=== PATIENT | male | born 1945 | race Caucasian/White ===

== ENCOUNTER 2022-06-06 16:06 | Inpatient (IN) | payer MEDICARE, OTHER ==
[~2022-06-06] VITALS: Ht 177.8 cm; Wt 69.4 kg
[~2022-06-06 16:06] MED LIST: HYDR-3974 PO; RIVA10TA PO; Sennosides PO
--- NOTE | 2022-06-06 16:15 | NUR ---
RECEIVED PT 76 YRS MALE CAME FROM HOME ACCOMPANY BY PIEDAD AND PT BROTHER C/O ALOC SPOOK NONE SENCE DISORINTED ON AND OFF
--- NOTE | 2022-06-06 17:00 | NUR ---
X-RAY DONE AT BED SIDE
--- NOTE | 2022-06-06 17:09 | NUR ---
SEEN BY DR. DRAPER
[2022-06-06] MEDS ORDERED: IV NS 0.9% 1,000 ML BAG IV ONE (17:30)
--- NOTE | 2022-06-06 17:30 | NUR ---
TO CT SCAN OF HEAD VIA POLY STABLE VS STABLE
--- NOTE | 2022-06-06 18:00 | NUR ---
FAMILY AT BED SIDE DOUGHTER (RYLEE ) AND SON(PAUL)
[2022-06-06 18:03] LABS: BASOPHILS % (AUTO) 0.7 % (0.0-2.0); HEMATOCRIT 42 % (39-51); HEMOGLOBIN 13.9 g/dL (13.5-17.5); LYMPHOCYTES # (AUTO) 1.9 K/uL (0.8-4.8); LYMPHOCYTES % (AUTO) 30.3 % (20.0-44.0); MEAN CORPUSCULAR HGB CONC 33 g/dl (31.0-36.0); MEAN CORPUSCULAR VOLUME 86 fL (80-96); MONOCYTES # (AUTO) 0.6 K/uL (0.1-1.30); MONOCYTES % (AUTO) 10.1 % (2.0-12.0); NEUTROPHILS # (AUTO) 3.5 K/uL (1.8-8.9); NEUTROPHILS % (AUTO) 56.9 % (43.0-81.0); PLATELET COUNT (AUTO) 250 K/uL (150-450); RED BLOOD CELL COUNT(AUTO) 4.94 MIL/uL (4.5-6.0); WHITE BLOOD COUNT (AUTO) 6.2 K/uL (4.3-11.0)
[2022-06-06 18:16] LABS: SERUM AMMONIA 14 umol/L (11-32)
[2022-06-06 18:30] LABS: ALANINE AMINOTRANSFERASE 9 U/L (12-78); ALKALINE PHOSPHATASE 63 U/L (46-116); ASPARTATE AMINOTRANSFERASE 11 U/L (15-37); BILIRUBIN,DIRECT 0.1 mg/dL (0.0-0.2); BILIRUBIN,TOTAL 0.3 mg/dL (0.2-1.0); CALCIUM, SERUM 8.2 mg/dL (8.5-10.1); CARBON DIOXIDE 27 mmol/L (21-32); CHLORIDE 109 mmol/L (98-107); CREATININE 0.8 mg/dL (0.6-1.3); GLUCOSE 95 mg/dL (74-106); POTASSIUM 3.8 mmol/L (3.5-5.1); SODIUM SERUM 140 mmol/L (136-145); TOTAL PROTEIN, SERUM 6.5 g/dL (6.4-8.2); UREA NITROGEN, BLOOD 17 mg/dL (7-18)
[2022-06-06 18:43] LABS: ALCOHOL, BLOOD < 3 mg/dL (0-0)
--- NOTE | 2022-06-06 19:00 | NUR ---
VITAL SIGNS UPDATED.
--- NOTE | 2022-06-06 19:25 | NUR ---
AWAITING DIPOSITION OF PATIENT BY .
--- NOTE | 2022-06-06 19:35 | NUR ---
COVID ANTIGEN SWAB COLLECTED AND SENT TO LAB
--- NOTE | 2022-06-06 19:43 | NUR ---
[facility] CALLED FOR UA WAS SEND BY ED TACH DID NOT RECVED
--- NOTE | 2022-06-06 19:53 | NUR ---
URINE COLLECTED AND SENT TO LAB
[2022-06-06 21:29] LABS: BILIRUBIN,URINE NEGATIVE (NEGATIVE); COLOR,URINE YELLOW (YELLOW); LEUKOCYTE ESTERASE ,URINE NEGATIVE (NEGATIVE); NITRITE, URINE NEGATIVE (NEGATIVE); PH,URINE 5.5 (5.0-8.0); PROTEIN,URINE NEGATIVE (NEGATIVE); UGLUCOSE NEGATIVE (NEGATIVE); UROBILINOGEN,URINE 0.2 EU/dL (0.2)
[2022-06-06] MEDS ORDERED: MAG HYDROX/AL HYDROX/SIMETH 30 ML UDC PO PRN (22:00)
[2022-06-06] MEDS ORDERED: ONDANSETRON HCL/PF 4 MG/2 ML VIAL IVP PRN (22:00)
[2022-06-06] MEDS ORDERED: ACETAMINOPHEN 325 MG TABLET PO PRN (22:00)
[2022-06-06] MEDS ORDERED: MAGNESIUM HYDROXIDE 30 ML UDC PO PRN (22:00)
[2022-06-06] MEDS ORDERED: HYDROCODONE/APAP 5/325MG TABLET PO PRN (22:00)
[2022-06-06] MEDS ORDERED: TEMAZEPAM 15 MG CAPSULE PO PRN (22:00)
[2022-06-06] MEDS ORDERED: Z GUARD REMEDY 4 OZ OINT TP PRN (22:00)
--- NOTE | 2022-06-07 00:15 | NUR ---
IV ACCESS DISLODGED. PER SARA SOUSA DNP PT DOES NOT NEED IV ACCESS.
--- NOTE | 2022-06-07 00:27 | NUR ---
REPORT GIVEN TO LEONOR Patrick RN FOR MAIRA
[2022-06-07] MEDS ORDERED: OLANZAPINE 10 MG VIAL IM ONE (00:30)
[2022-06-07 01:50] VITALS: BP 146/90
--- NOTE | 2022-06-07 01:51 | NUR ---
PT TRANSFERRED TO 310-1 VIA ACLS PROTOCOL. ALL BELONGINGS WITH PT. VSS. NOTIFIED RYLEE (DAUGHTER )[phone] REGARDING ADMISSION
[2022-06-07 02:00] VITALS: BP 146/90
--- NOTE | 2022-06-07 02:00 | NUR ---
SOCIAL SCIENCE MANAGER ADMITTING NOTE PATIENT WAS TRANSPORTED ON THE GURNEY FROM ER TO THE UNIT. HE IS ON RA, NO S/S OF SOB OR DISTRESS. TOLERATED WELL. ACCORDING TO AC COLLADO, FROM ER, PATIENT REMOVED HIS IV ACCESS; SO PATIENT DOES NOT HAVE THE IV ACCESS AND BIOMEDICAL ENGINEERING INTERNSHIP MERRY AWARE. UPON ARRIVAL, VITAL SIGNS WERE TAKEN THE FOLLOWING: BP IS 146/90, HR IS 92, O2 SAT IS 97% WITH RA; TEMPERATURE IS 98.5 F. RR IS 18. PATIENT IS ON EXTERNAL DERRICK FOLLOWER, THE HEART RHYTHM IS SR @90S. PATIENT IS CALM BUT VERY CONFUSED. HE ONLY KNOWS HIS NAME; BUT SOMETIMES, HE DOES NOT KNOW WHERE HE IS. ORIENTED THE PATIENT WITH SURROUNDINGS, INSTRUCTED PATIENT HOW TO USE THE CALL LIGHT. INSERTED A NEW IV AT HIS LEFT FA, #22G, RUNNING NS @ 75 ML/HOUR. SAFETY MEASURES ARE IN PLACE: BED IN LOWEST AND LOCKED POSITION; BED ALARM IS ON; CALL GAN AND TABLE ARE WITHIN REACH. SIDE RAILS UP X 3. WILL CONTINUE MONITORING THE PATIENT'S CONDITION AND PROVIDE THE CARE PATIENT NEEDS.
[2022-06-07] MEDS: IV NS 0.9% 1,000 ML IV PRN (02:46)
[2022-06-07 04:34] VITALS: BP 128/76
--- NOTE | 2022-06-07 05:50 | NUR ---
CHALK CUTTER NOTE PATIENT IS VERY CONFUSED; REMOVED THE TELE MONITOR AND THE LEADS SEVERAL TIMES DURING THE NIGHT. EDUCATED THE PATIENT AND REORIENTED HIM. PATIENT REMOVED THE IV ACCESS AGAIN. DRESSING APPLIED TO THE SITE.
[2022-06-07 06:41] LABS: BASOPHILS % (AUTO) 0.6 % (0.0-2.0); EOSINOPHILS % (AUTO) 0.9 % (0.0-6.0); HEMATOCRIT 47 % (39-51); HEMOGLOBIN 15.3 g/dL (13.5-17.5); LYMPHOCYTES % (AUTO) 22.8 % (20.0-44.0); MEAN CORPUSCULAR HGB CONC 32 g/dl (31.0-36.0); MEAN CORPUSCULAR VOLUME 86 fL (80-96); MONOCYTES # (AUTO) 0.7 K/uL (0.1-1.30); MONOCYTES % (AUTO) 7.6 % (2.0-12.0); NEUTROPHILS % (AUTO) 68.1 % (43.0-81.0); PLATELET COUNT (AUTO) 301 K/uL (150-450); RED BLOOD CELL COUNT(AUTO) 5.49 MIL/uL (4.5-6.0); WHITE BLOOD COUNT (AUTO) 8.7 K/uL (4.3-11.0)
--- NOTE | 2022-06-07 07:10 | NUR ---
HUMAN RESOURCE MANAGEMENT INSTRUCTOR NOTE PATIENT HAS BEEN WALKING AROUND, TAKING OUT OF THE LEADS OF THE TELE MONITOR, AND HE REMOVED HIS IV ACCESS. LULU SOUSA AND CHARGE NURSE DAVID NOTIFIED. TELE MONITOR IS ON STANDBY NOW BECAUSE PATIENT REFUSED TO BE PUT ON THE LEADS OF THE MONITOR. REORIENTED THE PATIENT MANY TIMES DURING SHIFT, ALSO BY RN ELEONORA WHO SPEAKS NICARAGUAN, PATIENT STILL CAN'T UNDERSTAND THE SITUATION. RECEIVED MD ORDER FOR ONE TIME DOSE OF ZYPREXA 5 MG IM.
[2022-06-07] MEDS: OLANZAPINE 10 MG VIAL IM ONE ×2 (07:18→08:27)
[2022-06-07 07:20] LABS: CALCIUM, SERUM 8.9 mg/dL (8.5-10.1); CARBON DIOXIDE 26 mmol/L (21-32); CHLORIDE 107 mmol/L (98-107); CREATININE 0.8 mg/dL (0.6-1.3); GLUCOSE 97 mg/dL (74-106); MAGNESIUM 2.3 mg/dL (1.8-2.4); PHOSPHORUS 3.4 mg/dL (2.5-4.9); POTASSIUM 3.7 mmol/L (3.5-5.1); SODIUM SERUM 143 mmol/L (136-145); UREA NITROGEN, BLOOD 13 mg/dL (7-18)
[2022-06-07] MEDS: PANTOPRAZOLE 40 MG TABLET.DR PO SCH (07:30)
--- NOTE | 2022-06-07 07:30 | NUR ---
ASSOCIATE PROPERTY MANAGER CLOSING NOTE PATIENT IS CONFUSED AND WONDERING AROUND IN THE HALLWAY. IS STILL ON RA, NO S/S OF SOB OR DISTRESS. CURRENTLY, PATIENT HAS NO IV ACCESS DUE TO THE REMOVING BY HIMSELF. HE REFUSED TO BE INSERTED ANOTHER IV ACCESS. HE REMOVED THE TELE MONITOR LEADS FROM HIM; REFUSED WEARING THEM. CHARGE NURSE, ROHAN HERNANDEZ. PATIENT ALSO REFUSED HAVING THE IM INJECTION OF THE ZYPREXA 5 MG. CHANGE SHIFT REPORT GIVEN TO THE DAY SHIFT NURSE. HE CHANGED INTO HIS OWN CLOTHES NOW AND WANT TO GO HOME. ENDORSED THE NEXT SHIFT NURSE TO FOLLOW UP WITH THE CARE OF THIS PATIENT.
--- NOTE | 2022-06-07 07:45 | NUR ---
PAIL BAILER NOTES: RECEIVED PT AWAKE, A/O X1. PT IS UP AND WALKING AROUND THE ROOM. PATIENT APPEARS CONFUSED, WILL REORIENT TO STAFF AND UNIT. ON RA, NO S/S OF SOB. PT HAS NO IV ACCESS, PER PM RN, PT REMOVED IT AND REFUSED REINSERTION AT THIS TIME. REFUSED TELE MONITOR WELL, PM COMMUNITY CENTER COORDINATOR AWARE. SAFETY MEASURES IN PLACE, RN CALLED DAUGHTER TO UPDATE ABOUT FATHER WANTING TO LEAVE BUT PT DOESN'T NOT KNOW WHERE HE LIVES, WILL STAY WITH PT AND KEEP HIM FROM LEAVING UNIT, OTHERWISE WILL CONT WITH PLAN OF CARE DURING SHIFT.
--- NOTE | 2022-06-07 07:51 | NUR ---
FUND CONTROLLER NOTE RECEIVED MD ORDER FOR ZYPREXA 5 MG IM. PATIENT REFUSED. MEDICATION WASTED. DAY SHIFT RN FOR THE PATIENT NOTIFIED.
[2022-06-07 08:08] LABS: THYROID STIMULATING HORMONE 1.342 uIU/mL (0.358-3.74)
[2022-06-07] MEDS ORDERED: TAMS-12 PO (08:11)
[2022-06-07 16:25] VITALS: BP 122/62
--- NOTE | 2022-06-07 18:52 | NUR ---
FINANCIAL MANAGER CLOSING NOTES: PT ASLEEP IN BED, EASILY ROUSED. A/OX1, ALERT TO NAME. FAMILY AT BEDSIDE. ON RA, SATURATING WELL, NO S/S OF SOB AND ACUTE DISTRESS NOTED. TELE MONITOR READS SB, HR- 56. IV ACCESS R FA # 22 RUNNING NS 75ML/HR. SAFETY MEASURES IN PLACE, CALL LIGHT AND TABLE WITHIN EASY REACH. KEPT PT CLEAN, DRY AND COMFORTABLE, WILL ENDORSE TO PM SHIFT.
--- NOTE | 2022-06-07 19:20 | NUR ---
TAR ROOFER OPENING NOTES: PT IS SITTING IN BED, AWAKE, A/O X1. HE IS ON RA, NO S/S OF SOB OR DISTRESS. HIS FAMILY MEMBERS ARE AT HIS BEDSIDE, WHICH CALMS HIM DOWN SIGNIFICANTLY. ACCORDING TO HIS FAMILY MEMBERS, PATIENT IS REALLY CONFUSED, AND ONLY KNOWS HIS NAME. IV ACCESS IS AT HIS RIGHT FA, #20G, SL. PATIENT IS ON EXTERNAL TELE MONITOR, HIS HEART RHYTHM IS SR AT 70s. SAFETY MEASURES IN PLACE: BED IN LOWEST AND LOCKED POSITION; SIDE RAILS UP X 2; BED ALARM IS ON; CALL GAN AND TABLE ARE IN REACH. FAMILY MEMBER IS AT HIS BEDSIDE. WILL CONTINUE MONITORING PATIENT'S CONDITION, AND PROVIDE THE CARE PATIENT NEEDS.
[2022-06-07 20:00] VITALS: BP 136/81
[2022-06-07] MEDS: QUETIAPINE FUMARATE 25 MG TABLET PO PRN (22:26)
--- NOTE | 2022-06-07 22:30 | NUR ---
MONUMENT CARVER NOTE PATIENT IS REQUESTING FOR SLEEPING PILLS; AND PATIENT'S FAMILY MEMBER STATED THAT THE PATIENT IS ANXIOUS, TOO. PRN MEDICATIONS GIVEN PER MD ORDER FOR INSOMNIA AND ANXIOUS.
--- NOTE | 2022-06-07 23:11 | NUR ---
MS SHEN NOTE PT IS REQUESTING FOR A NICOTINE PATCH. LULU SOUSA CONTACTED AND RECEIVED THE ORDER IMMEDIATELY. Addendum: 06/08/22 at 0100 by DAX CEDEÑO RN ERROR. WRONG PATIENT
[2022-06-07] MEDS ORDERED: NICOTINE PATCH (21MG) 21 MG PATCH.TD24 TD SCH (23:15)
[2022-06-08] MEDS: IV NS 0.9% 1,000 ML IV PRN ×2 (02:32→21:46)
--- NOTE | 2022-06-08 05:37 | NUR ---
IT SOFTWARE DEVELOPER NOTE PATIENT IS SLEEPING. PATIENT'S BROTHER TOLD THE ACADEMIC INTERVENTIONIST NOT TAKING THE VITAL SIGNS FOR HIS BROTHER. CHARGE NURSE, DAVID, NOTIFIED.
--- NOTE | 2022-06-08 06:27 | NUR ---
INVASIVE CARDIOVASCULAR TECHNOLOGIST NOTE LOGAN, FROM LAB SAID THAT PATIENT'S BROTHER REFUSED HIS BROTHER'S AM LAB DRAW.
--- NOTE | 2022-06-08 07:03 | NUR ---
BUTT WELDER CLOSING NOTES: PT IS SLEEPING IN BED. HE IS ON RA, NO S/S OF SOB OR DISTRESS. HIS FAMILY MEMBER IS AT HIS BEDSIDE, WHICH CALMS HIM DOWN SIGNIFICANTLY. IV ACCESS IS AT HIS RIGHT FA, #20G, RUNNING NS @75 ML/HR.. PATIENT IS ON EXTERNAL TELE MONITOR, HIS HEART RHYTHM IS SR AT 70s. SAFETY MEASURES IN PLACE: BED IN LOWEST AND LOCKED POSITION; SIDE RAILS UP X 2; BED ALARM IS ON; CALL GAN AND TABLE ARE IN REACH. WILL ENDORSE NEXT SHIFT FOR CONTINUE PATIENT CARE.
--- NOTE | 2022-06-08 07:30 | NUR ---
SOCIAL MEDIA STRATEGIST OPENING NOTES: RECEIVED PT IN BED, ASLEEP , A/O X1. HE IS ON RA, NO S/S OF SOB OR DISTRESS. NO C/O OF PAIN AND DISCOMFORT. FAMILY MEMBER AT HIS BEDSIDE. IV ACCESS IS AT HIS RIGHT FA, #20G, SL. PATIENT IS ON EXTERNAL TELE MONITOR, HIS HEART RHYTHM IS SR AT 80 s. SAFETY MEASURES IN PLACE: BED IN LOWEST AND LOCKED POSITION; SIDE RAILS UP X 2; BED ALARM IS ON; CALL GAN AND TABLE ARE IN REACH. WILL CONTINUE MONITORING PATIENT'S CONDITION.
[2022-06-08] MEDS: PANTOPRAZOLE 40 MG TABLET.DR PO SCH (08:59)
[2022-06-08] MEDS: ENOXAPARIN SODIUM 40 MG/0.4 ML DISP.SYRIN SQ SCH (09:16)
[2022-06-08 11:20] LABS: BASOPHILS # (AUTO) 0.1 K/uL (0.0-0.2); BASOPHILS % (AUTO) 0.9 % (0.0-2.0); EOSINOPHILS % (AUTO) 1.9 % (0.0-6.0); HEMATOCRIT 42 % (39-51); HEMOGLOBIN 13.6 g/dL (13.5-17.5); LYMPHOCYTES # (AUTO) 1.9 K/uL (0.8-4.8); LYMPHOCYTES % (AUTO) 31.4 % (20.0-44.0); MEAN CORPUSCULAR HGB CONC 33 g/dl (31.0-36.0); MEAN CORPUSCULAR VOLUME 86 fL (80-96); MONOCYTES # (AUTO) 0.6 K/uL (0.1-1.30); MONOCYTES % (AUTO) 9.6 % (2.0-12.0); NEUTROPHILS # (AUTO) 3.4 K/uL (1.8-8.9); NEUTROPHILS % (AUTO) 56.2 % (43.0-81.0); PLATELET COUNT (AUTO) 253 K/uL (150-450); RED BLOOD CELL COUNT(AUTO) 4.87 MIL/uL (4.5-6.0)
[2022-06-08 11:32] LABS: CALCIUM, SERUM 7.9 mg/dL (8.5-10.1); CREATININE 0.8 mg/dL (0.6-1.3); MAGNESIUM 2.2 mg/dL (1.8-2.4); PHOSPHORUS 2.7 mg/dL (2.5-4.9); POTASSIUM 3.7 mmol/L (3.5-5.1)
[2022-06-08] MEDS: ESCITALOPRAM OXALATE (10 MG) 10 MG TABLET PO SCH (12:29)
[2022-06-08] MEDS: LEVOFLOXACIN 500 MG /D5W 100ML 500 MG in PREMIX 1 EA IV SCH (14:50)
[2022-06-08] MEDS: FOLIC ACID 1 MG TABLET PO SCH (16:27)
[2022-06-08] MEDS: CYANOCOBALAMIN 1,000 MCG/ML VIAL SQ SCH (16:43)
[2022-06-08 16:59] LABS: PROSTATE SPECIFIC ANTIGEN SCR 6.7 ng/mL (0.00-4.00)
--- NOTE | 2022-06-08 18:33 | NUR ---
MANAGER COMMERCIAL SALES CLOSING NOTES: PT IN BED, , A/O X2-3 .ALBANIAN SPEAKING AND SOME YORUBA HE IS ON RA, NO S/S OF SOB OR DISTRESS. NO C/O OF PAIN AND DISCOMFORT. ALL DUE MEDS ORDERED , IV ATB OF LEVAQUIN ORDERED GIVEN , SEEN BY MD DR RIVERA AND ONCOLOGIST SOCORRO WITH SOME ORDERS NOTED AND CARRIED OUT , FAMILY MEMBER AT HIS BEDSIDE. IV ACCESS IS AT HIS RIGHT FA, #20G, SL. PATIENT IS ON EXTERNAL TELE MONITOR, HIS HEART RHYTHM IS SR AT [address]: BED IN LOWEST AND LOCKED POSITION; SIDE RAILS UP X 2; BED ALARM IS ON; CALL GAN AND TABLE ARE IN REACH. WILL CONTINUE MONITORING PATIENT'S CONDITION.
--- NOTE | 2022-06-08 19:30 | NUR ---
REVENUE FIELD AUDITOR OPENING NOTES: RECEIVED PATIENT AWAKE IN BED.PATIENT IS A/O X2 ITALIAN SPEAKER. FORGETFUL. REORIENT THE PATIENT. ON RA, NO S/S OF SOB OR DISTRESS NOTED. DAUGHTER AND BROTHER AT BED SIDE. IV ACCESS IS AT RIGHT FA, #20G, SL. PATIENT IS ON EXTERNAL TELE MONITOR, READING SR AT 65. ALL SAFETY MEASURES IN PLACE: BED IN LOWEST AND LOCKED POSITION; SIDE RAILS UP X 2; BED ALARM IS ON; CALL GAN AND TABLE ARE IN REACH. WILL CONTINUE TO MONITOR CLOSELY.
[2022-06-08 20:00] VITALS: BP 143/73
[2022-06-09 04:00] VITALS: BP 150/76
--- NOTE | 2022-06-09 06:37 | NUR ---
PLATFORM MILL SUPERVISOR CLOSING NOTES: PATIENT AWAKE IN BED.PATIENT IS A/O X2 PANAMANIAN SPEAKER. FORGETFUL. REORIENT THE PATIENT FREQUENTLY. ON RA, NO S/S OF SOB OR DISTRESS NOTED. IV ACCESS IS AT RIGHT FA, #20G, SL. PATIENT AND RUNNING NS AT 75 ML/HR. ON TELE MONITOR, READING SR AT 64. ALL SAFETY MEASURES IN PLACE: BED IN LOWEST AND LOCKED POSITION; SIDE RAILS UP X 2; BED ALARM IS ON; CALL GAN AND TABLE ARE IN REACH. WILL ENDORSE FOR MAIRA.
[2022-06-09 06:53] LABS: BASOPHILS % (AUTO) 0.9 % (0.0-2.0); HEMATOCRIT 36 % (39-51); HEMOGLOBIN 12.2 g/dL (13.5-17.5); LYMPHOCYTES # (AUTO) 1.3 K/uL (0.8-4.8); LYMPHOCYTES % (AUTO) 26.6 % (20.0-44.0); MEAN CORPUSCULAR HGB CONC 34 g/dl (31.0-36.0); MEAN CORPUSCULAR VOLUME 85 fL (80-96); MONOCYTES # (AUTO) 0.4 K/uL (0.1-1.30); MONOCYTES % (AUTO) 7.9 % (2.0-12.0); NEUTROPHILS % (AUTO) 62.6 % (43.0-81.0); PLATELET COUNT (AUTO) 212 K/uL (150-450); RED BLOOD CELL COUNT(AUTO) 4.24 MIL/uL (4.5-6.0); WHITE BLOOD COUNT (AUTO) 4.9 K/uL (4.3-11.0)
[2022-06-09 07:00] VITALS: BP 132/53
[2022-06-09 07:32] LABS: CALCIUM, SERUM 6.1 mg/dL (8.5-10.1); CREATININE 0.7 mg/dL (0.6-1.3); MAGNESIUM 1.6 mg/dL (1.8-2.4); PHOSPHORUS 1.8 mg/dL (2.5-4.9)
--- NOTE | 2022-06-09 07:38 | NUR ---
ELECTRIC TRAIN DRIVER OPENING NOTES: RECEIVED PT IN BED AWAKE , A/O X 2 , ON ROOM AIR , NO S/S OF SOB OR DISTRESS. NO C/O OF PAIN AND DISCOMFORT. . IV ACCESS IS AT HIS RIGHT FA, #20G WITH NS @75 ML / HOUR , ON EXTERNAL TELE MONITOR, HIS HEART RHYTHM IS SR AT 64 . SAFETY MEASURES IN PLACE: BED IN LOWEST AND LOCKED POSITION; SIDE RAILS UP X 2; BED ALARM IS ON; CALL GAN AND TABLE ARE IN REACH. WILL CONTINUE MONITORING PATIENT'S CONDITION.
[2022-06-09] MEDS: PANTOPRAZOLE 40 MG TABLET.DR PO SCH (08:11)
[2022-06-09] MEDS ORDERED: MAGNESIUM OXIDE 400 MG TABLET PO ONE (09:30)
[2022-06-09] MEDS: FOLIC ACID 1 MG TABLET PO SCH (09:43)
[2022-06-09] MEDS: ESCITALOPRAM OXALATE (10 MG) 10 MG TABLET PO SCH (09:44)
[2022-06-09] MEDS: ENOXAPARIN SODIUM 40 MG/0.4 ML DISP.SYRIN SQ SCH (09:47)
[2022-06-09] MEDS: CYANOCOBALAMIN 1,000 MCG/ML VIAL SQ SCH (09:49)
[2022-06-09] MEDS ORDERED: POTASSIUM CHLORIDE 20 MEQ TAB.PRT.SR PO SCH (10:00)
[2022-06-09 12:00] VITALS: BP 149/89
[2022-06-09] MEDS ORDERED: K PHOS NEUTRAL 250 MG TABLET PO ONE (12:30)
[2022-06-09] MEDS: LEVOFLOXACIN 500 MG /D5W 100ML 500 MG in PREMIX 1 EA IV SCH (14:10)
[2022-06-09 16:00] VITALS: BP 124/75
[2022-06-09] MEDS: IV NS 0.9% 1,000 ML IV PRN (19:24)
--- NOTE | 2022-06-09 19:30 | NUR ---
DATABASES COMPUTER CONSULTANT OPENING NOTES: RECEIVED PATIENT AWAKE IN BED.PATIENT IS A/O X2 KOREAN SPEAKER. FORGETFUL. REORIENT THE PATIENT. ON RA, NO S/S OF SOB OR DISTRESS NOTED. BROTHER AT BED SIDE. IV ACCESS IS AT RIGHT HAND #20G, SL. PATIENT RUNNING NS AT 75 ML/HR. IS ON EXTERNAL TELE MONITOR, READING SR AT 62. ALL SAFETY MEASURES IN PLACE: BED IN LOWEST AND LOCKED POSITION; SIDE RAILS UP X 2; BED ALARM IS ON; CALL GAN AND TABLE ARE IN REACH. WILL CONTINUE TO MONITOR CLOSELY.
[2022-06-09 20:00] VITALS: BP 124/77
[2022-06-09 22:10] VITALS: BP 122/72
[2022-06-10] VITALS: BP_SYST 123; BP_SYST 156; BP_DIAS 59; BP_DIAS 78
--- NOTE | 2022-06-10 03:00 | NUR ---
RN NOTES PATIENT FRUSTRATED FOR BED ALARM NOISE. HAD IV SITE OUT EARLIER SINCE PATIENT FORGETS HE HAS IV AND GETS UP FROM BED SUDDENLY. AT THIS TIME PATIENT REMOVED THE TELE MONITOR. AND REFUSING THE TELE MONITOR. WILL TRY TO EDUCATE AND REORIENT THE PATIENT LATER.
--- NOTE | 2022-06-10 06:53 | NUR ---
RN CLOSING NOTES: PATIENT AWAKE WALKING IN THE HALLWAY. PATIENT IS A/O X2 SOUTH SUDANESE SPEAKER. FORGETFUL. ON RA, NO S/S OF SOB OR DISTRESS NOTED. PATIENT REFUSED TELE, IV HYDRATION, AND PUTS CLOTHS ON AND READY TO LEAVE. PATIENT FEELS ANXIOUS IF WAS CHECKED AND MONITORED. HE WAS REFUSING BLOOD PRESSURE CHECKS, AND TELE MONITOR FIXING BY INDIVIDUAL PENSION CONSULTANT NURSES. SO PERSONALLY WAS ATTENDING ALL NEEDS AND BED ALARM ON SINCE PATIENT WAS FORGETTING HAVING IV WITH HYDRATION AND THE IV WAS PULED OUT WHILE STANDING UP. ALL SAFETY MEASURES IN PLACE: BED IN LOWEST AND LOCKED POSITION; SIDE RAILS UP X 2; BED ALARM IS ON; CALL GAN AND TABLE ARE IN REACH. WILL ENDORSE FOR MAIRA.
[2022-06-10] MEDS: QUETIAPINE FUMARATE 25 MG TABLET PO PRN (07:15)
[2022-06-10 07:55] LABS: BASOPHILS % (AUTO) 0.7 % (0.0-2.0); EOSINOPHILS % (AUTO) 0.3 % (0.0-6.0); HEMATOCRIT 45 % (39-51); HEMOGLOBIN 14.8 g/dL (13.5-17.5); LYMPHOCYTES # (AUTO) 1.4 K/uL (0.8-4.8); LYMPHOCYTES % (AUTO) 19.8 % (20.0-44.0); MEAN CORPUSCULAR HGB CONC 33 g/dl (31.0-36.0); MEAN CORPUSCULAR VOLUME 85 fL (80-96); MONOCYTES # (AUTO) 0.5 K/uL (0.1-1.30); MONOCYTES % (AUTO) 6.7 % (2.0-12.0); NEUTROPHILS # (AUTO) 5.1 K/uL (1.8-8.9); NEUTROPHILS % (AUTO) 72.5 % (43.0-81.0); PLATELET COUNT (AUTO) 303 K/uL (150-450); RED BLOOD CELL COUNT(AUTO) 5.27 MIL/uL (4.5-6.0)
--- NOTE | 2022-06-10 08:11 | NUR ---
SILVER CLEANER OPENING NOTE Patient sitting on chair. A/O x 2, with periods of confusion. On room air, breathing evenly and unlabored. No SOB or s/s of distress noted. IV access on RFA #22 SL, intact and patent. Patient refused tele monitoring at this time. Safety precautions in place: bed in low, locked position; siderails up x2; call light within reach. Will continue to monitor.
[2022-06-10 08:18] LABS: CALCIUM, SERUM 8.5 mg/dL (8.5-10.1); CREATININE 0.9 mg/dL (0.6-1.3); MAGNESIUM 2.2 mg/dL (1.8-2.4); PHOSPHORUS 2.7 mg/dL (2.5-4.9); POTASSIUM 3.7 mmol/L (3.5-5.1)
[2022-06-10] MEDS ORDERED: TAMSULOSIN 0.4 MG CAP.SR.24H PO SCH (09:00)
[2022-06-10] MEDS: FOLIC ACID 1 MG TABLET PO SCH (09:51)
[2022-06-10] MEDS: PANTOPRAZOLE 40 MG TABLET.DR PO SCH (09:51)
[2022-06-10] MEDS: ESCITALOPRAM OXALATE (10 MG) 10 MG TABLET PO SCH (09:51)
[2022-06-10] MEDS: CYANOCOBALAMIN 1,000 MCG/ML VIAL SQ SCH (09:52)
[2022-06-10] MEDS: ENOXAPARIN SODIUM 40 MG/0.4 ML DISP.SYRIN SQ SCH (09:55)
[2022-06-10] MEDS: LEVOFLOXACIN 500 MG /D5W 100ML 500 MG in PREMIX 1 EA IV SCH (14:33)
[2022-06-10] MEDS ORDERED: ESCI10TA PO (16:57)
[2022-06-10] MEDS ORDERED: LEVO500T90 PO (16:57)
[2022-06-10] MEDS ORDERED: CYAN10006 SQ (16:57)
[2022-06-10] MEDS ORDERED: GADOTERATE MEGLUMINE 10 MMOL/20 ML VIAL IV ONE (18:59)
--- NOTE | 2022-06-10 19:00 | NUR ---
DISCHARGE NOTE Received order for discharge. Patient is A/O x 1-2, with periods of confusion. Stable on room air, no SOB or s/s of distress noted. Discharge instructions given to Adelaida, daughter, verbalized understanding. All belongings accounted for, belonging sheet signed. IV access removed, catheter tip intact. Pressure dressing applied. ID band removed. Patient left in stable condition with brother via private car.
== END 2022-06-10 19:00 | disposition home or self-care (01) | DRG 689 ==
LOC: ER 16:06 → TELE 06-07 00:14
PROVIDERS: ADMIT Nurse Practitioner Acute Care; ATTEND Registered Nurse
DX: N39.0 Urinary tract infection, site not specified (principal); G93.41 Metabolic encephalopathy; E44.1 Mild protein-calorie malnutrition; F11.20 Opioid dependence, uncomplicated; N40.0 Benign prostatic hyperplasia without lower urinary tract symptoms; Z20.822 Contact with and (suspected) exposure to COVID-19; I10 Essential (primary) hypertension; Z90.49 Acquired absence of other specified parts of digestive tract; Z98.890 Other specified postprocedural states; Z96.651 Presence of right artificial knee joint; Z88.0 Allergy status to penicillin; Z79.01 Long term (current) use of anticoagulants; Z79.899 Other long term (current) drug therapy; Z87.891 Personal history of nicotine dependence; Z96.641 Presence of right artificial hip joint; M19.90 Unspecified osteoarthritis, unspecified site; E88.09 Other disorders of plasma-protein metabolism, not elsewhere classified; F03.90 Unspecified dementia, unspecified severity, without behavioral disturbance, psychotic disturbance, mood disturbance, and anxiety; E53.8 Deficiency of other specified B group vitamins; R26.9 Unspecified abnormalities of gait and mobility; R91.1 Solitary pulmonary nodule; F32.A Depression, unspecified; R41.0 Disorientation, unspecified; B95.2 Enterococcus as the cause of diseases classified elsewhere; Z68.22 Body mass index [BMI] 22.0-22.9, adult
CPT/HCPCS: 36415; 70450-TC; 70553-TC; 71045-TC; 71250-TC; 80048-TC; 80076-TC; 82140-TC; 82378; 82607-TC; 82962-TC; 83605-TC; 83735-TC; 84100-TC; 84153-TC; 84154-TC; 84443-TC; 84484-TC; 85025-TC; 87040-TC; 87081-TC; 87086-TC; 95819-TC; A4216; A9575; C9803; G0378; G0480; J1650; J1956; J3420; J3490; J7030

== ENCOUNTER 2022-07-13 10:54 | Outpatient (CLI) | payer MEDICARE, OTHER ==
[~2022-07-13 10:54] MED LIST changes: +CYAN10006 SQ; +ESCI10TA PO; -HYDR-3974 PO; +LEVO500T90 PO; -RIVA10TA PO; -Sennosides PO; +TAMS-12 PO
== END 2022-07-13 23:59 | disposition home or self-care (01) ==
LOC: CT 10:54
PROVIDERS: ATTEND Internal Medicine Hematology & Oncology
DX: R91.1 Solitary pulmonary nodule (principal); J43.9 Emphysema, unspecified
CPT/HCPCS: 71250-TC

== ENCOUNTER 2025-05-30 14:51 | Inpatient (IN) | payer MEDICARE, OTHER ==
[~2025-05-30] VITALS: Ht 170.2 cm; Wt 47.2 kg
[2025-05-30] MEDS ORDERED: ACETAMINOPHEN ES 500 MG TABLET PO ONE (15:00)
[2025-05-30] MEDS: IV NS 0.9% 1,000 ML BAG IV ONE (15:20)
[2025-05-30 15:27] LABS: PLATELET COUNT (AUTO) 501 K/uL (150-450); RED BLOOD CELL COUNT(AUTO) 5.90 MIL/uL (4.5-6.0); RED CELL DISTRIBUTION WIDTH 15.1 % (11.5-15.0); WHITE BLOOD COUNT (AUTO) 18.1 K/uL (4.3-11.0)
[2025-05-30] MEDS ORDERED: ACETAMINOPHEN 650 MG/SUPP.RECT RC ONE (15:38)
[2025-05-30] MEDS ORDERED: CEFTRIAXONE 1GM BAG (ER ONLY) 50 ML IV ONE (15:38)
[2025-05-30] MEDS: CEFTRIAXONE 1GM BAG (ER ONLY) 50 ML IV ONE (15:40)
[2025-05-30] MEDS: ACETAMINOPHEN 650 MG/SUPP.RECT RC ONE (15:50)
[2025-05-30 16:23] LABS: ASPARTATE AMINOTRANSFERASE 15 U/L (15-37); CALCIUM, SERUM 8.4 mg/dL (8.5-10.1); CREATININE 2.1 mg/dL (0.6-1.3); TOTAL PROTEIN, SERUM 7.1 g/dL (6.4-8.2); UREA NITROGEN, BLOOD 67 mg/dL (7-18)
[2025-05-30 16:25] LABS: LACTIC ACID 4.7 mmol/L (0.4-2.0); SODIUM SERUM 158 mmol/L (136-145)
[2025-05-30 16:30] LABS: INR 1.12 (0.91-1.10)
[2025-05-30] MEDS: IV LR 1000 ML 1,000 ML BAG IV ONE (16:30)
[2025-05-30] MEDS ORDERED: IV NS 0.9% 1,000 ML BAG IV ONE (16:30)
[2025-05-30] MEDS ORDERED: IOHEXOL-300 100 ML VIAL IV ONE (16:34)
[2025-05-30] MEDS ORDERED: IV NS 0.9% 0 ML IV ONE (16:34)
[2025-05-30] MEDS ORDERED: CT SWABBABLE VALVE TRANS SET 1 EA INFUS.SET MC ONE (16:34)
[2025-05-30] MEDS ORDERED: MAGNESIUM HYDROXIDE 30 ML UDC PO PRN (17:30)
[2025-05-30] MEDS ORDERED: MAG HYDROX/AL HYDROX/SIMETH 30 ML UDC PO PRN (17:30)
[2025-05-30] MEDS ORDERED: ONDANSETRON HCL/PF 4 MG/2 ML VIAL IVP PRN (17:30)
[2025-05-30] MEDS ORDERED: Z GUARD REMEDY 4 OZ OINT TP PRN (17:30)
[2025-05-30 18:30] VITALS: BP 115/80; TEMP 97.3; O2SAT 96
[2025-05-30 18:31] LABS: APPEARANCE,URINE CLOUDY (CLEAR); BLOOD, URINE NEGATIVE Ery/uL (NEGATIVE); LEUKOCYTE ESTERASE ,URINE NEGATIVE (NEGATIVE); NITRITE, URINE POSITIVE (NEGATIVE); UGLUCOSE TRACE mg/dL (NEGATIVE)
[2025-05-30 18:38] LABS: ADD URINE CULTURE YES
[2025-05-30 18:39] LABS: URINE AMORPHOUS URATE Many /HPF (None Seen)
[2025-05-30 20:00] VITALS: BP 105/65; TEMP 97.7; O2SAT 97
[2025-05-30] MEDS: IV NS 0.9% 1,000 ML IV PRN (20:15)
[2025-05-31] MEDS ORDERED: AZITHROMYCIN 500 MG VIAL ONE (00:14)
[2025-05-31] MEDS: AZITHROMYCIN 500 MG in IV D5W 250 ML IV SCH (00:35)
[2025-05-31 07:24] LABS: PLATELET COUNT (AUTO) 341 K/uL (150-450); RED BLOOD CELL COUNT(AUTO) 4.32 MIL/uL (4.5-6.0); RED CELL DISTRIBUTION WIDTH 14.7 % (11.5-15.0); WHITE BLOOD COUNT (AUTO) 16.5 K/uL (4.3-11.0)
[2025-05-31 07:26] LABS: CALCIUM, SERUM 7.8 mg/dL (8.5-10.1); CREATININE 1.1 mg/dL (0.6-1.3); PHOSPHORUS 3.3 mg/dL (2.5-4.9); UREA NITROGEN, BLOOD 54.0 mg/dL (7-18)
[2025-05-31] MEDS: PANTOPRAZOLE 40 MG TABLET.DR PO SCH (07:30)
[2025-05-31 07:36] LABS: LDL 52.0 mg/dL (0-99)
[2025-05-31 07:40] LABS: SODIUM SERUM 158.0 mmol/L (136-145)
[2025-05-31 08:00] VITALS: BP 104/60; TEMP 98.8; O2SAT 98
[2025-05-31 08:30] VITALS: BP 104/60; TEMP 98.8; O2SAT 98
[2025-05-31] MEDS ORDERED: AZITHROMYCIN 500 MG in IV D5W 250 ML IV SCH (09:00)
[2025-05-31] MEDS: THERAHONEY GEL 1.5 OZ TUBE TP SCH (11:00)
[2025-05-31] MEDS: CEFEPIME 1 GM in IV D5W 50 ML IV SCH (11:51)
[2025-05-31] MEDS: ARGININE/GLUTAMINE/CALCIUM BMB 1 EACH POWD.PACK NG SCH (12:00)
[2025-05-31] MEDS ORDERED: JEVITY 1.2 CAL 1,000 ML BOTTLE NG PRN (12:00)
[2025-05-31 16:00] VITALS: BP 107/66; TEMP 98.2; O2SAT 92
[2025-05-31] MEDS ORDERED: CEFTRIAXONE 1 G in IV D5W 50 ML IV SCH (16:00)
[2025-05-31 16:18] VITALS: BP 107/66; TEMP 98.2; O2SAT 92
[2025-05-31] MEDS: JEVITY 1.2 CAL 1,000 ML BOTTLE GT PRN (18:00)
[2025-05-31 20:00] VITALS: BP 107/77; TEMP 97.5; O2SAT 99
[2025-06-01 06:14] LABS: ASPARTATE AMINOTRANSFERASE 20.0 U/L (15-37); CALCIUM, SERUM 7.9 mg/dL (8.5-10.1); CREATININE 0.9 mg/dL (0.6-1.3); PHOSPHORUS 1.7 mg/dL (2.5-4.9); TOTAL PROTEIN, SERUM 5.5 g/dL (6.4-8.2); UREA NITROGEN, BLOOD 37.0 mg/dL (7-18)
[2025-06-01 06:20] LABS: SODIUM SERUM 161.0 mmol/L (136-145)
[2025-06-01 06:24] LABS: CREATINE KINASE, TOTAL 44.0 U/L (39-308); PLATELET COUNT (AUTO) 331 K/uL (150-450); RED BLOOD CELL COUNT(AUTO) 3.99 MIL/uL (4.5-6.0); RED CELL DISTRIBUTION WIDTH 14.3 % (11.5-15.0); WHITE BLOOD COUNT (AUTO) 11.9 K/uL (4.3-11.0)
[2025-06-01 08:00] VITALS: BP 99/68; TEMP 97.9; O2SAT 100
[2025-06-01] MEDS: PANTOPRAZOLE 40 MG/PACK PACK PO SCH (09:51)
[2025-06-01] MEDS: POTASSIUM CHLORIDE 20 MEQ POWDER PACKET NG SCH (09:53)
[2025-06-01] MEDS: NEUTRA PHOS 1 POWD.PACKET GT ONE (13:28)
[2025-06-01 16:00] VITALS: BP 100/68; TEMP 97.9; O2SAT 95
[2025-06-01 20:00] VITALS: BP 110/68; TEMP 98.2; O2SAT 100
[2025-06-02] VITALS (8 sets, daily range): BP systolic 107–134; BP diastolic 40–78; TEMP 97.6–100; O2SAT 88–100
[2025-06-02 07:39] LABS: PLATELET COUNT (AUTO) 334 K/uL (150-450); RED BLOOD CELL COUNT(AUTO) 4.34 MIL/uL (4.5-6.0); RED CELL DISTRIBUTION WIDTH 14.5 % (11.5-15.0); WHITE BLOOD COUNT (AUTO) 12.3 K/uL (4.3-11.0)
[2025-06-02 08:02] LABS: CALCIUM, SERUM 7.9 mg/dL (8.5-10.1); CREATININE 0.7 mg/dL (0.6-1.3); UREA NITROGEN, BLOOD 29.0 mg/dL (7-18)
[2025-06-02 08:12] LABS: PTH, INTACT 29 pg/mL (15-65)
[2025-06-02 08:34] LABS: SODIUM SERUM 160.0 mmol/L (136-145)
[2025-06-02] MEDS: FREE WATER VIA TUBE FEEDING GT SCH (09:21)
[2025-06-02 11:38] LABS: ABG BASE EXCESS -0.6 mmol/L (-2.0-3.0); ABG OXYGEN SATURATION 89.8 % (94.0-98.0); ABG PCO2 27.8 mmHg (35.0-48.0); ABG PH 7.504 (7.350-7.450); ABG PO2 52.7 mmHg (83.0-108.0); ABG TOTAL HEMOGLOBIN 12.5 G/dL (13.5-17.5); FLOW, BLOOD GAS 4.00 L/min (0.00-30.00); FRACTIONATED INSPIRED OXYGEN 36.0 %; SITE, ABG LEFT RADIAL
[2025-06-02] MEDS: MEROPENEM 1 G in IV NS 0.9% 100 ML IV SCH (16:09)
[2025-06-02] MEDS: ENOXAPARIN SODIUM 40 MG/0.4 ML DISP.SYRIN SQ SCH (16:14)
[2025-06-02] MEDS: ACETAMINOPHEN 325 MG TABLET PO PRN (16:15)
[2025-06-02] MEDS: ACETYLCYSTEINE 10% SOLN 400 MG/4 ML VIAL NEB SCH (16:50)
[2025-06-02] MEDS: IPRATROPIUM NEB FS 0.5 MG/2.5 ML AMPUL.NEB NEB SCH (16:50)
[2025-06-02] MEDS: MORPHINE SULFATE INJ 2 MG/ML DISP.SYRIN IV PRN (17:56)
[2025-06-03] VITALS (15 sets, daily range): BP systolic 88–123; BP diastolic 64–77; TEMP 97.9–98.8; O2SAT 97–100
[2025-06-03 06:39] LABS: CALCIUM, SERUM 7.8 mg/dL (8.5-10.1); CREATININE 0.9 mg/dL (0.6-1.3); UREA NITROGEN, BLOOD 25.0 mg/dL (7-18)
[2025-06-03 06:43] LABS: PLATELET COUNT (AUTO) 314 K/uL (150-450); RED BLOOD CELL COUNT(AUTO) 4.10 MIL/uL (4.5-6.0); RED CELL DISTRIBUTION WIDTH 14.6 % (11.5-15.0); WHITE BLOOD COUNT (AUTO) 12.7 K/uL (4.3-11.0)
[2025-06-03 06:45] LABS: SODIUM SERUM 156.0 mmol/L (136-145)
[2025-06-03] MEDS: POTASSIUM CHLORIDE 20 MEQ POWDER PACKET NG SCH (11:33)
[2025-06-03] MEDS: AZITHROMYCIN 250 MG TABLET GT SCH (18:40)
[2025-06-04] VITALS (17 sets, daily range): BP systolic 98–115; BP diastolic 61–70; TEMP 97.9–99.5; O2SAT 95–99
[2025-06-04 07:38] LABS: PLATELET COUNT (AUTO) 311 K/uL (150-450); RED BLOOD CELL COUNT(AUTO) 4.28 MIL/uL (4.5-6.0); RED CELL DISTRIBUTION WIDTH 14.6 % (11.5-15.0); WHITE BLOOD COUNT (AUTO) 13.4 K/uL (4.3-11.0)
[2025-06-04 07:50] LABS: CALCIUM, SERUM 8.4 mg/dL (8.5-10.1); CREATININE 0.8 mg/dL (0.6-1.3); UREA NITROGEN, BLOOD 27.0 mg/dL (7-18)
[2025-06-04 08:24] LABS: SODIUM SERUM 157.0 mmol/L (136-145)
[2025-06-04 11:12] LABS: *SPE A/G RATIO 0.7 (0.7-1.7); *SPE ALBUMIN 2.0 g/dL (2.9-4.4); *SPE ALPHA-1-GLOBULIN 0.4 g/dL (0.0-0.4); *SPE ALPHA-2-GLOBULIN 0.9 g/dL (0.4-1.0); *SPE BETA GLOBULIN 0.8 g/dL (0.7-1.3); *SPE GLOBULIN, TOTAL 2.9 g/dL (2.2-3.9); *SPE M-SPIKE Not Observed g/dL (Not Observed); *SPE PROTEIN TOTAL 4.9 g/dL (6.0-8.5); *SPEGAMMA GLOBULIN 0.9 g/dL (0.4-1.8)
[2025-06-05] VITALS (14 sets, daily range): BP systolic 118–129; BP diastolic 71–101; TEMP 97.7–98.2; O2SAT 95–100
[2025-06-05 07:52] LABS: PLATELET COUNT (AUTO) 294 K/uL (150-450); RED BLOOD CELL COUNT(AUTO) 4.22 MIL/uL (4.5-6.0); RED CELL DISTRIBUTION WIDTH 15.0 % (11.5-15.0); WHITE BLOOD COUNT (AUTO) 12.5 K/uL (4.3-11.0)
[2025-06-05 08:16] LABS: CALCIUM, SERUM 8.1 mg/dL (8.5-10.1); CREATININE 0.7 mg/dL (0.6-1.3); PHOSPHORUS 2.2 mg/dL (2.5-4.9); SODIUM SERUM 152.0 mmol/L (136-145); UREA NITROGEN, BLOOD 33.0 mg/dL (7-18)
[2025-06-05] MEDS: FREE WATER VIA TUBE FEEDING GT SCH (08:37)
[2025-06-05] MEDS: NEUTRA PHOS 1 POWD.PACKET GT ONE (11:21)
[2025-06-05] MEDS: DOXYCYCLINE 100 MG in IV D5W 100 ML IV SCH (21:17)
[2025-06-06] VITALS (14 sets, daily range): BP systolic 105–114; BP diastolic 63–71; TEMP 98.2–98.8; O2SAT 95–100
[2025-06-06 07:47] LABS: PLATELET COUNT (AUTO) 312 K/uL (150-450); RED BLOOD CELL COUNT(AUTO) 4.42 MIL/uL (4.5-6.0); RED CELL DISTRIBUTION WIDTH 14.8 % (11.5-15.0); WHITE BLOOD COUNT (AUTO) 11.9 K/uL (4.3-11.0)
[2025-06-06 07:49] LABS: CALCIUM, SERUM 7.9 mg/dL (8.5-10.1); CREATININE 0.6 mg/dL (0.6-1.3); PHOSPHORUS 2.2 mg/dL (2.5-4.9); SODIUM SERUM 152.0 mmol/L (136-145); UREA NITROGEN, BLOOD 25.0 mg/dL (7-18)
[2025-06-06] MEDS ORDERED: DOSING PER PHARMACY-VANCOMYCIN IV XX PRN (13:30)
[2025-06-06] MEDS: VANCOMYCIN 1 GM in IV D5W 250ml IV ONE (14:22)
[2025-06-06] MEDS: NEUTRA PHOS 1 POWD.PACKET NG ONE (15:32)
[2025-06-07] VITALS (13 sets, daily range): BP systolic 113–133; BP diastolic 72–74; TEMP 97.9–99.1; O2SAT 97–100
[2025-06-07] MEDS: VANCOMYCIN 750 MG in IV D5W 250 ML IV SCH (02:29)
[2025-06-07 06:49] LABS: PLATELET COUNT (AUTO) 323 K/uL (150-450); RED BLOOD CELL COUNT(AUTO) 4.45 MIL/uL (4.5-6.0); RED CELL DISTRIBUTION WIDTH 14.3 % (11.5-15.0); WHITE BLOOD COUNT (AUTO) 10.6 K/uL (4.3-11.0)
[2025-06-07 07:02] LABS: ASPARTATE AMINOTRANSFERASE 39.0 U/L (15-37); CALCIUM, SERUM 7.6 mg/dL (8.5-10.1); CREATININE 0.5 mg/dL (0.6-1.3); PHOSPHORUS 1.9 mg/dL (2.5-4.9); SODIUM SERUM 145.0 mmol/L (136-145); TOTAL PROTEIN, SERUM 5.5 g/dL (6.4-8.2); UREA NITROGEN, BLOOD 17.0 mg/dL (7-18)
[2025-06-07] MEDS: NEUTRA PHOS 1 POWD.PACKET NG ONE (16:12)
[2025-06-08] VITALS (15 sets, daily range): BP systolic 114–134; BP diastolic 72–77; TEMP 97.7–98.1; O2SAT 94–100
[2025-06-08 06:47] LABS: PLATELET COUNT (AUTO) 353 K/uL (150-450); RED BLOOD CELL COUNT(AUTO) 4.44 MIL/uL (4.5-6.0); RED CELL DISTRIBUTION WIDTH 14.1 % (11.5-15.0); WHITE BLOOD COUNT (AUTO) 13.0 K/uL (4.3-11.0)
[2025-06-08 06:54] LABS: ASPARTATE AMINOTRANSFERASE 35.0 U/L (15-37); CALCIUM, SERUM 7.8 mg/dL (8.5-10.1); CREATININE 0.6 mg/dL (0.6-1.3); PHOSPHORUS 2.1 mg/dL (2.5-4.9); SODIUM SERUM 144.0 mmol/L (136-145); TOTAL PROTEIN, SERUM 5.6 g/dL (6.4-8.2); UREA NITROGEN, BLOOD 17.0 mg/dL (7-18)
[2025-06-08] MEDS: NEUTRA PHOS 1 POWD.PACKET PO ONE (15:34)
[2025-06-09] VITALS (16 sets, daily range): BP systolic 108–122; BP diastolic 66–70; TEMP 98.6–99.7; O2SAT 96–100
[2025-06-09 06:43] LABS: PLATELET COUNT (AUTO) 378 K/uL (150-450); RED BLOOD CELL COUNT(AUTO) 5.12 MIL/uL (4.5-6.0); RED CELL DISTRIBUTION WIDTH 14.3 % (11.5-15.0); WHITE BLOOD COUNT (AUTO) 9.0 K/uL (4.3-11.0)
[2025-06-09 07:06] LABS: ASPARTATE AMINOTRANSFERASE 29.0 U/L (15-37); CALCIUM, SERUM 7.4 mg/dL (8.5-10.1); CREATININE 0.7 mg/dL (0.6-1.3); PHOSPHORUS 2.6 mg/dL (2.5-4.9); SODIUM SERUM 142.0 mmol/L (136-145); TOTAL PROTEIN, SERUM 5.4 g/dL (6.4-8.2); UREA NITROGEN, BLOOD 24.0 mg/dL (7-18)
[2025-06-10] VITALS (14 sets, daily range): BP systolic 95–96; BP diastolic 61–69; TEMP 98.8–99.5; O2SAT 93–100
[2025-06-10 11:30] LABS: PLATELET COUNT (AUTO) 364 K/uL (150-450); RED BLOOD CELL COUNT(AUTO) 3.86 MIL/uL (4.5-6.0); RED CELL DISTRIBUTION WIDTH 14.2 % (11.5-15.0); WHITE BLOOD COUNT (AUTO) 10.4 K/uL (4.3-11.0)
[2025-06-10 11:45] LABS: ASPARTATE AMINOTRANSFERASE 27.0 U/L (15-37); CALCIUM, SERUM 7.5 mg/dL (8.5-10.1); CREATININE 0.6 mg/dL (0.6-1.3); PHOSPHORUS 2.4 mg/dL (2.5-4.9); SODIUM SERUM 141.0 mmol/L (136-145); TOTAL PROTEIN, SERUM 5.4 g/dL (6.4-8.2); UREA NITROGEN, BLOOD 24.0 mg/dL (7-18)
[2025-06-10] MEDS: NEUTRA PHOS 1 POWD.PACKET NG ONE (16:51)
[2025-06-11] VITALS (16 sets, daily range): BP systolic 91–142; BP diastolic 54–84; TEMP 97.4–98.8; O2SAT 93–100
[2025-06-11 08:02] LABS: PLATELET COUNT (AUTO) 373 K/uL (150-450); RED BLOOD CELL COUNT(AUTO) 3.81 MIL/uL (4.5-6.0); RED CELL DISTRIBUTION WIDTH 14.2 % (11.5-15.0); WHITE BLOOD COUNT (AUTO) 9.7 K/uL (4.3-11.0)
[2025-06-11 09:03] LABS: ASPARTATE AMINOTRANSFERASE 37.0 U/L (15-37); CALCIUM, SERUM 7.7 mg/dL (8.5-10.1); CREATININE 0.4 mg/dL (0.6-1.3); PHOSPHORUS 2.6 mg/dL (2.5-4.9); SODIUM SERUM 143.0 mmol/L (136-145); TOTAL PROTEIN, SERUM 5.5 g/dL (6.4-8.2); UREA NITROGEN, BLOOD 24.0 mg/dL (7-18)
[2025-06-11 17:07] LABS: ABG BASE EXCESS 6.2 mmol/L (-2.0-3.0); ABG OXYGEN SATURATION 98.4 % (94.0-98.0); ABG PCO2 44.0 mmHg (35.0-48.0); ABG PH 7.462 (7.350-7.450); ABG PO2 142.1 mmHg (83.0-108.0); ABG TOTAL HEMOGLOBIN 11.5 G/dL (13.5-17.5); FLOW, BLOOD GAS 8.00 L/min (0.00-30.00); FRACTIONATED INSPIRED OXYGEN 52.0 %; SITE, ABG UAL
[2025-06-12] VITALS (15 sets, daily range): BP systolic 102–123; BP diastolic 66–92; TEMP 97.9–98.4; O2SAT 97–100
[2025-06-12 07:53] LABS: PLATELET COUNT (AUTO) 436 K/uL (150-450); RED BLOOD CELL COUNT(AUTO) 3.79 MIL/uL (4.5-6.0); RED CELL DISTRIBUTION WIDTH 13.9 % (11.5-15.0); WHITE BLOOD COUNT (AUTO) 9.9 K/uL (4.3-11.0)
[2025-06-12 08:08] LABS: ASPARTATE AMINOTRANSFERASE 24.0 U/L (15-37); CALCIUM, SERUM 8.0 mg/dL (8.5-10.1); CREATININE 0.5 mg/dL (0.6-1.3); PHOSPHORUS 3.4 mg/dL (2.5-4.9); SODIUM SERUM 141.0 mmol/L (136-145); TOTAL PROTEIN, SERUM 5.8 g/dL (6.4-8.2); UREA NITROGEN, BLOOD 30.0 mg/dL (7-18)
[2025-06-13] VITALS (16 sets, daily range): BP systolic 92–113; BP diastolic 61–80; TEMP 98–98.2; O2SAT 92–100
[2025-06-13 08:28] LABS: CALCIUM, SERUM 7.8 mg/dL (8.5-10.1); CREATININE 0.7 mg/dL (0.6-1.3); SODIUM SERUM 138.0 mmol/L (136-145); UREA NITROGEN, BLOOD 23.0 mg/dL (7-18)
[2025-06-14] VITALS (14 sets, daily range): BP systolic 98–113; BP diastolic 62–66; TEMP 99–99.7; O2SAT 97–100
[2025-06-14 07:41] LABS: PLATELET COUNT (AUTO) 442 K/uL (150-450); RED BLOOD CELL COUNT(AUTO) 3.61 MIL/uL (4.5-6.0); RED CELL DISTRIBUTION WIDTH 14.1 % (11.5-15.0); WHITE BLOOD COUNT (AUTO) 8.2 K/uL (4.3-11.0)
[2025-06-14 08:02] LABS: ASPARTATE AMINOTRANSFERASE 24.0 U/L (15-37); CALCIUM, SERUM 7.5 mg/dL (8.5-10.1); CREATININE 0.5 mg/dL (0.6-1.3); PHOSPHORUS 3.0 mg/dL (2.5-4.9); SODIUM SERUM 138.0 mmol/L (136-145); TOTAL PROTEIN, SERUM 5.7 g/dL (6.4-8.2); UREA NITROGEN, BLOOD 27.0 mg/dL (7-18)
[2025-06-15] VITALS (15 sets, daily range): BP systolic 104–126; BP diastolic 63–71; TEMP 97.9–98.6; O2SAT 94–100
[2025-06-15 08:14] LABS: PLATELET COUNT (AUTO) 527 K/uL (150-450); RED BLOOD CELL COUNT(AUTO) 4.36 MIL/uL (4.5-6.0); RED CELL DISTRIBUTION WIDTH 14.5 % (11.5-15.0); WHITE BLOOD COUNT (AUTO) 5.3 K/uL (4.3-11.0)
[2025-06-15 08:44] LABS: ASPARTATE AMINOTRANSFERASE 29.0 U/L (15-37); CALCIUM, SERUM 8.2 mg/dL (8.5-10.1); CREATININE 0.5 mg/dL (0.6-1.3); PHOSPHORUS 2.9 mg/dL (2.5-4.9); SODIUM SERUM 138.0 mmol/L (136-145); TOTAL PROTEIN, SERUM 6.6 g/dL (6.4-8.2); UREA NITROGEN, BLOOD 22.0 mg/dL (7-18)
[2025-06-15] MEDS: FREE WATER VIA TUBE FEEDING GT SCH (18:00)
[2025-06-16] VITALS (14 sets, daily range): BP systolic 96–110; BP diastolic 64–73; TEMP 98.1; O2SAT 91–100
[2025-06-16 08:25] LABS: CALCIUM, SERUM 7.8 mg/dL (8.5-10.1); CREATININE 0.6 mg/dL (0.6-1.3); PHOSPHORUS 3.2 mg/dL (2.5-4.9); SODIUM SERUM 132.0 mmol/L (136-145); UREA NITROGEN, BLOOD 24.0 mg/dL (7-18)
[2025-06-16] MEDS: FREE WATER VIA TUBE FEEDING GT SCH (09:30)
[2025-06-16 13:22] LABS: PLATELET COUNT (AUTO) 513 K/uL (150-450); RED BLOOD CELL COUNT(AUTO) 3.78 MIL/uL (4.5-6.0); RED CELL DISTRIBUTION WIDTH 14.2 % (11.5-15.0); WHITE BLOOD COUNT (AUTO) 7.9 K/uL (4.3-11.0)
[2025-06-17] VITALS (17 sets, daily range): BP systolic 104–130; BP diastolic 63–82; TEMP 98.2–99.1; O2SAT 98–100
[2025-06-17 10:07] LABS: PLATELET COUNT (AUTO) 507 K/uL (150-450); RED BLOOD CELL COUNT(AUTO) 3.64 MIL/uL (4.5-6.0); RED CELL DISTRIBUTION WIDTH 14.1 % (11.5-15.0); WHITE BLOOD COUNT (AUTO) 7.5 K/uL (4.3-11.0)
[2025-06-17 10:20] LABS: INR 1.04 (0.91-1.10)
[2025-06-17 10:25] LABS: ASPARTATE AMINOTRANSFERASE 18.0 U/L (15-37); CALCIUM, SERUM 7.6 mg/dL (8.5-10.1); CREATININE 0.5 mg/dL (0.6-1.3); PHOSPHORUS 2.8 mg/dL (2.5-4.9); SODIUM SERUM 140.0 mmol/L (136-145); TOTAL PROTEIN, SERUM 5.7 g/dL (6.4-8.2); UREA NITROGEN, BLOOD 26.0 mg/dL (7-18)
[2025-06-18] VITALS (14 sets, daily range): BP systolic 110–114; BP diastolic 77; TEMP 98.5–99; O2SAT 95–100
[2025-06-18 07:30] LABS: PLATELET COUNT (AUTO) 524 K/uL (150-450); RED BLOOD CELL COUNT(AUTO) 3.57 MIL/uL (4.5-6.0); RED CELL DISTRIBUTION WIDTH 14.2 % (11.5-15.0); WHITE BLOOD COUNT (AUTO) 6.3 K/uL (4.3-11.0)
[2025-06-18 07:52] LABS: CALCIUM, SERUM 8.2 mg/dL (8.5-10.1); CREATININE 0.6 mg/dL (0.6-1.3); PHOSPHORUS 3.2 mg/dL (2.5-4.9); SODIUM SERUM 140.0 mmol/L (136-145); UREA NITROGEN, BLOOD 29.0 mg/dL (7-18)
[2025-06-19] VITALS (15 sets, daily range): BP systolic 110–118; BP diastolic 69–77; TEMP 97.5–98.6; O2SAT 96–100
[2025-06-19 08:17] LABS: CALCIUM, SERUM 8.6 mg/dL (8.5-10.1); CREATININE 0.6 mg/dL (0.6-1.3); PHOSPHORUS 3.9 mg/dL (2.5-4.9); SODIUM SERUM 142.0 mmol/L (136-145); UREA NITROGEN, BLOOD 32.0 mg/dL (7-18)
[2025-06-19 08:24] LABS: INR 1.04 (0.91-1.10)
[2025-06-19 08:53] LABS: PLATELET COUNT (AUTO) 576 K/uL (150-450); RED BLOOD CELL COUNT(AUTO) 4.24 MIL/uL (4.5-6.0); RED CELL DISTRIBUTION WIDTH 14.6 % (11.5-15.0); WHITE BLOOD COUNT (AUTO) 7.9 K/uL (4.3-11.0)
[2025-06-19] MEDS ORDERED: ANESTHESIA TRAY IN PYXIS 1 EA TRAY MC ONE (13:40)
[2025-06-20] VITALS (14 sets, daily range): BP systolic 123–133; BP diastolic 87–90; TEMP 97.7–98.1; O2SAT 97–100
[2025-06-20 07:37] LABS: PLATELET COUNT (AUTO) 526 K/uL (150-450); RED BLOOD CELL COUNT(AUTO) 3.60 MIL/uL (4.5-6.0); RED CELL DISTRIBUTION WIDTH 14.4 % (11.5-15.0); WHITE BLOOD COUNT (AUTO) 6.8 K/uL (4.3-11.0)
[2025-06-20 12:11] LABS: CALCIUM, SERUM 8.5 mg/dL (8.5-10.1); CREATININE 0.6 mg/dL (0.6-1.3); PHOSPHORUS 3.4 mg/dL (2.5-4.9); SODIUM SERUM 146.0 mmol/L (136-145); UREA NITROGEN, BLOOD 25.0 mg/dL (7-18)
[2025-06-21] VITALS (10 sets, daily range): BP systolic 126; BP diastolic 75; TEMP 98.8; O2SAT 96–99
[2025-06-21 06:30] LABS: CALCIUM, SERUM 8.3 mg/dL (8.5-10.1); CREATININE 0.5 mg/dL (0.6-1.3); PHOSPHORUS 2.7 mg/dL (2.5-4.9); SODIUM SERUM 144.0 mmol/L (136-145); UREA NITROGEN, BLOOD 27.0 mg/dL (7-18)
[2025-06-21 06:32] LABS: PLATELET COUNT (AUTO) 500 K/uL (150-450); RED BLOOD CELL COUNT(AUTO) 3.91 MIL/uL (4.5-6.0); RED CELL DISTRIBUTION WIDTH 15.1 % (11.5-15.0); WHITE BLOOD COUNT (AUTO) 10.5 K/uL (4.3-11.0)
== END 2025-06-21 15:45 | DRG 871 ==
LOC: ER 15:03 → MED 16:58
PROVIDERS: ADMIT Nurse Practitioner Acute Care
PROC: 0DH63UZ Insertion of Feeding Device into Stomach, Percutaneous Approach (ICD-10-PCS; principal; 2025-06-19 13:00)
DX: A41.9 Sepsis, unspecified organism (principal); E43 Unspecified severe protein-calorie malnutrition; L89.223 Pressure ulcer of left hip, stage 3; L89.153 Pressure ulcer of sacral region, stage 3; L89.213 Pressure ulcer of right hip, stage 3; L89.523 Pressure ulcer of left ankle, stage 3; N17.0 Acute kidney failure with tubular necrosis; J69.0 Pneumonitis due to inhalation of food and vomit; J96.01 Acute respiratory failure with hypoxia; G92.8 Other toxic encephalopathy; J15.9 Unspecified bacterial pneumonia; N39.0 Urinary tract infection, site not specified; B96.89 Other specified bacterial agents as the cause of diseases classified elsewhere; F09 Unspecified mental disorder due to known physiological condition; F02.80 Dementia in other diseases classified elsewhere, unspecified severity, without behavioral disturbance, psychotic disturbance, mood disturbance, and anxiety; I12.9 Hypertensive chronic kidney disease with stage 1 through stage 4 chronic kidney disease, or unspecified chronic kidney disease; N18.9 Chronic kidney disease, unspecified; R64 Cachexia; E87.0 Hyperosmolality and hypernatremia; Z68.1 Body mass index [BMI] 19.9 or less, adult; E87.1 Hypo-osmolality and hyponatremia; L97.329 Non-pressure chronic ulcer of left ankle with unspecified severity; L89.620 Pressure ulcer of left heel, unstageable; R13.10 Dysphagia, unspecified; E88.09 Other disorders of plasma-protein metabolism, not elsewhere classified; Z66 Do not resuscitate; E86.0 Dehydration; D75.839 Thrombocytosis, unspecified; Z20.822 Contact with and (suspected) exposure to COVID-19; K29.70 Gastritis, unspecified, without bleeding; G30.9 Alzheimer's disease, unspecified; Z90.49 Acquired absence of other specified parts of digestive tract; Z79.899 Other long term (current) drug therapy; Z98.890 Other specified postprocedural states; Z88.0 Allergy status to penicillin; E86.1 Hypovolemia; R62.7 Adult failure to thrive; Z74.09 Other reduced mobility; N40.0 Benign prostatic hyperplasia without lower urinary tract symptoms; Z87.891 Personal history of nicotine dependence; L89.616 Pressure-induced deep tissue damage of right heel; L89.326 Pressure-induced deep tissue damage of left buttock; L89.516 Pressure-induced deep tissue damage of right ankle; L89.316 Pressure-induced deep tissue damage of right buttock; L89.226 Pressure-induced deep tissue damage of left hip; K59.00 Constipation, unspecified; R73.9 Hyperglycemia, unspecified; R91.1 Solitary pulmonary nodule; Z74.01 Bed confinement status
CPT/HCPCS: 36415; 36600; 43246; 70450-TC; 71045-TC; 71250-TC; 76770-TC; 80048-TC; 80053-TC; 80061-TC; 80076-TC; 80202-TC; 81001; 82550-TC; 82803-TC; 82962-TC; 83605-TC; 83735-TC; 83970; 84100-TC; 84155; 84165; 84443-TC; 85025-TC; 85610-TC; 85730-TC; 86850-TC; 87040-TC; 87070-TC; 87081-TC; 87086-TC; 87205-TC; 93307-TC; 94760-TC; 94761-TC; 94762-TC; 94799-TC; 97110-TC; 97112-TC; 97530-TC; A4223; A6213; A6253; A6403; G0378; J0456; J0690; J0692; J0696; J1650; J2185; J2270; J2704; J3373; J3374; J3490; J7030; J7040; J7050; J7060; J7120; Q9967